=== PATIENT | male | born 1970 | race Caucasian/White ===

== ENCOUNTER → 2017-06-10 | Outpatient (CLI) | payer BC ==
--- NOTE | 2017-06-10 16:54 | XR ---
EXAMINATION TYPE: XR lumbar spine 2 or 3V DATE OF EXAM: 06/10/2017 COMPARISON: NONE HISTORY: Back pain TECHNIQUE: 3 views FINDINGS: The vertebra have fairly normal spacing and alignment. There is mild anterior hypertrophic spurring. Posterior elements are intact. Sacroiliac joints are normal. There is no evidence of a frac ture. IMPRESSION: Mild spurring. Otherwise negative lumbar spine exam.
== END ==
LOC: RADXRMAIN 16:11
PROVIDERS: ATTEND Family Medicine
DX: M46.06 Spinal enthesopathy, lumbar region (principal)
CPT/HCPCS: 72100

== ENCOUNTER → 2018-10-18 | Outpatient (CLI) | payer BC ==
--- NOTE | 2018-10-19 09:07 | XR ---
EXAMINATION TYPE: XR shoulder complete RT DATE OF EXAM: 10/18/2018 COMPARISON: NONE HISTORY: Pain TECHNIQUE: Three views are submitted. FINDINGS: The osseous structures are intact. There is no acute fracture or dislocation. The AC joint is maint ained. Small focal lucent lesion in the proximal diaphysis IMPRESSION: 1. Question a small lucent lesion proximal diaphysis humerus. Recommend Bone scan right shoulder.
== END | disposition home or self-care (01) ==
LOC: RADXRMAIN 17:01
PROVIDERS: ATTEND Physician Assistant
DX: M25.511 Pain in right shoulder (principal)

== ENCOUNTER 2018-11-28 13:24 | Emergency (ER) | payer BC ==
[2018-11-28 13:35] VITALS: BP 168/75; PULSE 104; RESP 18; TEMP 98.3
--- NOTE | 2018-11-28 14:24 | ED ---
Fall HPI - General Chief Complaint: Fall Stated Complaint: Fall-Shoulder Injury Time Seen by Provider: 11/28/18 14:04 Source: patient, RN notes reviewed, old records reviewed Mode of arrival: ambulatory - History of Present Illness Initial Comments: Patient is a 48-year-old male who presents emergency department today with complaints of left shoulder pain. Patient reports that he slipped and fell on the ice yesterday which are included on his car. Patient reports he landed on his left shoulder. Patient states that he's had pain with range of motion. He is currently seeking treatment for right shoulder pain. Patient is not seeing orthopedic currently. He is [place] his right shoulder pain with his PCP. Patient states that he has normal sensation distally full range motion of the elbow and hand. - Related Data Previous Rx's Medication Instructions Recorded Acetaminophen Tab [Tylenol Tab] 650 mg PO Q6H #20 tablet 11/28/18 Ibuprofen [Motrin] 600 mg PO Q8HR PRN #20 tab 11/28/18 Allergies Allergy/AdvReac Type Severity Reaction Status Date / Time Penicillins Allergy Rash/Hives Verified 11/28/18 13:35 shellfish derived [Shrimp] Allergy Anaphylaxis Verified 11/28/18 13:35 Review of Systems ROS Statement: Those systems with pertinent positive or pertinent negative responses have been documented in the HPI. ROS Other: All systems not noted in ROS Statement are negative. Past Medical History Past Medical History: Diabetes Mellitus, Hypertension, Thyroid Disorder History of Any Multi-Drug Resistant Organisms: None Reported Past Surgical History: Cholecystectomy, Ear Surgery, Hernia Repair Additional Past Surgical History / Comment(s): plastic surgery on forehead Past Psychological History: No Psychological Hx Reported Smoking Status: Current every day smoker Past Alcohol Use History: None Reported Past Drug Use History: Marijuana General Exam - General Exam Comments Initial Comments: This is a 48-year-old male. Oriented 3. No distress. General appearance: alert, in no apparent distress Head exam: Present: atraumatic, normocephalic, normal inspection Eye exam: Present: normal appearance, PERRL, EOMI. Absent: scleral icterus, conjunctival injection, periorbital swelling ENT exam: Present: normal exam, mucous membranes moist Neck exam: Present: normal inspection. Absent: tenderness, meningismus, lymphadenopathy Respiratory exam: Present: normal lung sounds bilaterally. Absent: respiratory distress, wheezes, rales, rhonchi, stridor Cardiovascular Exam: Present: regular rate, normal rhythm, normal heart sounds. Absent: systolic murmur, diastolic murmur, rubs, gallop, clicks GI/Abdominal exam: Present: soft, normal bowel sounds. Absent: distended, tenderness, guarding, rebound, rigid Extremities exam: Present: normal inspection, full ROM, normal capillary refill. Absent: tenderness, pedal edema, joint swelling, calf tenderness Left Shoulder Exam: Present: full ROM, tenderness over AC joint (noticable separation). Absent: normal inspection Upper Arm exam: Present: normal inspection, full ROM Elbow exam: Present: normal inspection, full ROM Forearm Wrist exam: Present: normal inspection, full ROM Hand Wrist exam: Present: normal inspection, full ROM Neuro motor exam: Present: wrist extension intact, thumb opposition intact, thumb IP flexion intact, thumb adduction intact, fingers 2-5 abduction intact Vascular: Present: normal capillary refill Back exam: Present: normal inspection Neurological exam: Present: alert, oriented X3, CN II-XII intact Psychiatric exam: Present: normal affect, normal mood Skin exam: Present: warm, dry, intact, normal color. Absent: rash Course Vital Signs 11/28/18 13:29 Temperature 98.3 F Pulse Rate 104 H Respiratory 18 Rate Blood Pressure 168/75 O2 Sat by Pulse 98 Oximetry Procedures - Orthopedic Splinting/Casting Injury #1 Side: left Upper Extremity Injury Location: shoulder Upper Extremity Immobilizer: sling/shoulder immobilizer Medical Decision Making - Medical Decision Making Patient is a 48-year-old male presents emergency department today with complaints of left shoulder pain after slip and fall. He landed on his left shoulder. Clinically appears to be a slight before meals separation and is tender over the before meals joint. X-ray of left shoulder is complete negative for any acute process. At this time Patient will be discharged with a shoulder sling referral for orthopedic. Discussed Motrin Tylenol and icing the shoulder pain. Discussed strict return parameters. All questions answered return parameters were discussed. - Radiology Data Radiology results: report reviewed No acute fracture dislocation of the left shoulder. Disposition Clinical Impression: AC separation, Fall, Left shoulder pain Disposition: HOME SELF-CARE Condition: Good Instructions (If sedation given, give patient instructions): Acromioclavicular Separation (ED) Additional Instructions: Patient must follow-up with metalworking specialist. Patient should return to the emergency department if any alarming signs or symptoms occur. Motrin Tylenol for pain. Ice the area well for 20 minutes every few hours Prescriptions: Ibuprofen [Motrin] 600 mg PO Q8HR PRN #20 tab PRN Reason: Pain Acetaminophen Tab [Tylenol Tab] 650 mg PO Q6H #20 tablet Is patient prescribed a controlled substance at d/c from ED?: No Referrals: Kem Maguire DO [Primary Care Provider] - 1-2 days Jordy Chapa MD [Medical Doctor] - 1-2 days Time of Disposition: 14:46
--- NOTE | 2018-11-28 14:42 | XR ---
EXAMINATION TYPE: XR shoulder complete LT DATE OF EXAM: 11/28/2018 CLINICAL HISTORY: Pain after fall injury yesterday. TECHNIQUE: Three views of the left shoulder are obtained. COMPARISON: None. FINDINGS: There is no acute fracture/dislocation evident in the left shoulder. There is mild narrowi ng and spurring at left acromioclavicular joint. Glenohumeral joint is maintained. The visualized ri bs are intact and unremarkable. IMPRESSION: There is no acute fracture or dislocation in the left shoulder.
== END 2018-11-28 15:20 | disposition home or self-care (01) ==
LOC: EC 13:24
DX: S43.102A Unspecified dislocation of left acromioclavicular joint, initial encounter (principal); F17.200 Nicotine dependence, unspecified, uncomplicated; Z88.0 Allergy status to penicillin; Z91.013 Allergy to seafood; W00.0XXA Fall on same level due to ice and snow, initial encounter; Y93.89 Activity, other specified
CPT/HCPCS: 99284